=== PATIENT | male | born 1970 | race Caucasian/White ===

== ENCOUNTER 2019-03-21 16:36 | Emergency (ER) | payer MEDICAID ==
[~2019-03-21] VITALS: Ht 167.6 cm; Wt 83.9 kg
[2019-03-21 17:41] LABS: BASOPHIL % 1.6 % (0-2); PLATELET COUNT 295 x10^3mcL (130-400)
[2019-03-21 17:44] LABS: RED CELL DISTRIBUTION WIDTH 14.9 % (11.5-14.5)
[2019-03-21 18:06] LABS: CALCIUM 8.8 mg/dL (8.5-10.1); CARBON DIOXIDE 22.7 mmol/L (21-32); CHLORIDE SERUM 103 mmol/L (98-107); CREATININE SERUM 1.2 mg/dL (0.7-1.3); GFR1 > 60 mL/min; GLUCOSE SERUM 180 mg/dL (74-106); POTASSIUM SERUM 4.5 mmol/L (3.5-5.1); SODIUM SERUM 139 mmol/L (136-145)
[2019-03-21 18:57] VITALS: BP 153/99
== END 2019-03-21 18:57 | disposition home or self-care (01) ==
LOC: ED 16:36
PROVIDERS: Emergency Medicine
DX: F41.9 Anxiety disorder, unspecified (principal); R07.89 Other chest pain
CPT/HCPCS: G0480; J2060; J7030; Q0092